=== PATIENT | male | born 1945 | race Caucasian/White ===

== ENCOUNTER 2017-06-26 14:12 | Emergency (ER) | payer MEDICARE, OTHER ==
--- NOTE | 2017-06-26 21:26 | RAD ---
RIGHT SHOULDER THREE VIEWS: Date: 06-26-17 FINDINGS: While there is no major fracture visible, there is an irregularity along the inferior lip of the kaur oid fossa. I cannot exclude injury here, more likely old than new. There is no dislocation. Degenerat akil changes are seen in the AC joint. It is not widened. The visible portions of the clavicle and sca pula appear intact. IMPRESSION: Irregularity along the inferior glenoid lip, age indeterminate, but thought to be more likely old gregoria n new. If pain persists, follow up MRI could be helpful. POS: HOME
== END 2017-06-26 14:15 | disposition home or self-care (01) ==
LOC: BURERS 14:12
DX: S40.011A Contusion of right shoulder, initial encounter (principal); E78.5 Hyperlipidemia, unspecified; Z79.899 Other long term (current) drug therapy; W11.XXXA Fall on and from ladder, initial encounter

== ENCOUNTER 2019-04-24 10:33 | Outpatient (CLI) | payer MEDICARE, OTHER ==
--- NOTE | 2019-04-24 11:33 | RAD ---
EXAM: 3 views of the right foot HISTORY: Foot pain COMPARISON: None FINDINGS: 3 views of the right foot shows no evidence of acute fracture or dislocation. No soft tissu e swelling is seen. No degenerative changes are present. IMPRESSION: No evidence of acute osseous abnormality.
== END 2019-04-24 10:34 | disposition home or self-care (01) ==
LOC: BURRAD 10:33
PROVIDERS: ATTEND Family Medicine
DX: M79.671 Pain in right foot (principal)

== ENCOUNTER 2019-07-30 03:45 | Emergency (ER) | payer MEDICARE, OTHER ==
[2019-07-30 03:57] LABS: Bilirubin Small (Negative); Blood, Urine Trace (Negative); Clarity Slightly Cloudy (Clear); Glucose, Urine (Dipstick) Negative (Negative); Leukocyte Negative (Negative); Nitrite Negative (Negative); Protein, Urine (Dipstick) 100 mg/dL (Neg-Trace)
[2019-07-30 04:04] LABS: Bacteria/HPF Rare-Few HPF (None Seen); RBC/HPF 0-3 HPF (0-3); Squamous Epithelial 0-3 HPF (0-3)
[2019-07-30 04:51] LABS: ALT (SGPT) 21 U/L (8-55); AST (SGOT) 23 U/L (5-34); Alkaline Phosphatase 71 U/L (40-110); Anion Gap 15 mmol/L (10-20); BUN (Urea Nitrogen) 25 mg/dL (8.4-25.7); Bilirubin, Total 1.2 mg/dL (0.2-1.2); CK (CPK) 364 U/L (30-200); Calc. Creatinine Clearance 0 mL/min (70-130); Carbon Dioxide 22 mmol/L (23-31); Chloride 99 mmol/L (98-107); Estimated GFR-MDRD 51; Globulin 2.8 g/dL (2.4-3.5); Glucose 122 mg/dL (83-110); Lipase 14 U/L (8-78); Magnesium 1.7 mg/dL (1.6-2.6); Protein, Total 6.8 g/dL (5.8-8.1); Sodium 132 mmol/L (136-145)
[2019-07-30 04:56] LABS: Band 25 % (5-11); Hemoglobin 13.2 g/dL (14.0-18.0); Lymphocytes 4 % (21-51); MDiff Complete? YES; Mean Corpuscular HGB CONC 33.3 g/dL (32.0-36.0); Mean Corpuscular Hemoglobin 29.8 pg (27.0-31.0); Mean Corpuscular Volume 89.6 fL (78.0-98.0); Mean Platelet Volume 8.3 fL (7.4-10.4); Monocytes 5 % (0-10); Neutrophil 66 % (42-75); Platelet Count 160 thou/uL (130-400); Platelet Morphology Comment Appears Adequate; RBC Distribution Width 12.5 % (11.5-14.5); RBC Morphology Normal; Red Blood Cell (RBC) Count 4.43 mill/uL (4.70-6.10); Toxic Granulation SLIGHT; Vacuoles SLIGHT; White Blood Cell (WBC) Count 13.6 thou/uL (4.8-10.8)
[2019-07-30] MEDS ORDERED: Azithromycin 250 MG TAB ONE (05:07)
--- NOTE | 2019-07-30 07:44 | RAD ---
PORTABLE CHEST: Date: 07/30/2019 An AP portable at 0435 hours is compared with the 06/05/2015 study. The heart is normal in size and unchanged. There is no congestion or edema. The right lung is clear. There is a little bit of streaking in the left lower lobe adjacent to the left heart border. An early infiltrate here is possible. There are no effusions. Elevation of the right hemidiaphragm is typical in this patient. IMPRESSION: Left lower lobe streaking. Early infiltrate possible. POS: HOME
== END 2019-07-30 05:20 | disposition home or self-care (01) ==
LOC: BURERS 03:45
DX: R50.9 Fever, unspecified (principal); Z20.828 Contact with and (suspected) exposure to other viral communicable diseases; E78.5 Hyperlipidemia, unspecified; E78.00 Pure hypercholesterolemia, unspecified; Z79.899 Other long term (current) drug therapy
CPT/HCPCS: 71045; 80053; 81001; 82550; 83605; 83690; 83735; 85025; 87040; 87077; 87086; 87149 ×2; 87186; 87804 ×2; 99283; U0002; 36415; 87635; U0003

== ENCOUNTER 2020-01-31 08:47 | Outpatient (CLI) | payer MEDICARE, OTHER ==
[2020-01-31] MEDS ORDERED: Iopamidol 370 76% 100 ML VIAL ONE (11:49)
--- NOTE | 2020-01-31 12:42 | CT ---
CT ABDOMEN AND PELVIS WITH CONTRAST: DATE: 01/31/2020. FINDINGS: Comparison is made with an 02/25/2005 study. The lung bases are clear. No effusions are seen. Dense arterial calcification is seen in the pérez ry arteries, specially the LAD. The liver is normal in size. There is a 9 mm water density area near the dome of the liver on the ri ght side. While not present on the 205 study, statistically, it is most likely a small cyst. I doub t its current significance. The spleen, gallbladder, pancreas, kidneys, and abdominal aorta showed n o acute findings. There was no sign of renal obstruction or ureteral calculi. As before, a rounded right adrenal mass is seen. Before it was about 2 cm in diameter and today it is about 2.[address] numbers were about 5. The finding and minimal growth over time is fairly typical of an adeno ma, so further workup is not really needed. The left adrenal gland appears normal. The bowel showed no dilation or wall thickening. There is no inflammatory change around bowel. Ther e are some diverticula in the sigmoid region, but there no convincing findings of diverticulitis. CT of the pelvis was remarkable mainly for diverticulosis, but also an extremely large prostate, bein g over 7 cm in size. Degenerative changes are present throughout the spine. IMPRESSION: 1. No findings to explain the patient's left flank pain. 2. 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 3. Marked prostatic hypertrophy. POS: HOME
== END 2020-01-31 08:48 | disposition home or self-care (01) ==
LOC: BURCT 08:47
PROVIDERS: ATTEND Family Medicine
DX: R10.9 Unspecified abdominal pain (principal); N40.0 Benign prostatic hyperplasia without lower urinary tract symptoms; E27.8 Other specified disorders of adrenal gland
CPT/HCPCS: 74177; Q9967